=== PATIENT | female | born 1980 | race African-American/Black ===

== ENCOUNTER 2019-10-08 14:44 | Inpatient (IN) | payer OTHER ==
[~2019-10-08] VITALS: Ht 167.6 cm; Wt 85.7 kg
[2019-10-08 15:06] LABS: BASOPHILS 0.1 % (0-2); EOSINOPHILS 0 % (0-7); HEMATOCRIT 33.5 % (36.0-48.0); HEMOGLOBIN 11.4 g/dL (12-16); IMMATURE GRANULOCYTES 0.2 % (0-5); LYMPHOCYTES 4.5 % (15-50); MCH 29.1 pg (26.0-34.0); MCV 85.5 fL (80.0-100.0); MEAN PLATELET VOLUME 10.2 fL (7.4-10.4); MONOCYTES 4.4 % (2-11); NEUTROPHILS 90.8 % (40-80); PLATELET COUNT 202 10x3/uL (130-400); RBC 3.92 10x6/uL (4.00-5.40); RDW 13.3 % (11.5-14.5); WBC 11.4 10x3/uL (4.8-10.8)
[2019-10-08 15:23] LABS: BILIRUBIN NEGATIVE (NEGATIVE); KETONE NEGATIVE (NEGATIVE); NITRITE NEGATIVE (NEGATIVE); UROBILINOGEN NORMAL (NORMAL)
[2019-10-08 15:24] LABS: BACTERIA MODERATE /hpf (NONE SEEN); EPITHELIAL CELLS 0-5 /hpf (0-5); WHITE CELLS - URINE 0-5 /hpf (0-5)
[2019-10-08 15:33] LABS: ALBUMIN 3.3 g/dL (3.4-5.0); ALKALINE PHOSPHATASE 70 U/L (30-120); ALT (SGPT) 15 U/L (10-68); CALC OSMOLALITY 268 mosm/kg (275-300); CALCIUM 8.8 mg/dL (8.5-10.1); CARBON DIOXIDE 24.3 mmol/L (21.0-32.0); CHLORIDE - SERUM 98 mmol/L (98-107); CREATINE KINASE 105 UL (21-215); CREATININE - SERUM 1.2 mg/dL (0.6-1.3); GLUCOSE 179 mg/dL (74-106); PROTEIN - SERUM 8.1 g/dL (6.4-8.2); SODIUM 132 mmol/L (136-145); UREA NITROGEN 12 mg/dL (7-18); eGFR NON AFRICAN AMERICAN 52 mL/min (90-120)
[2019-10-08 15:43] LABS: POTASSIUM - SERUM 2.9 mmol/L (3.5-5.1); TROPONIN-I < 0.017 ng/mL (0.000-0.060)
[2019-10-08 16:45] LABS: C-REACTIVE PROTEIN 36.3 mg/dL (0.0-0.9)
[2019-10-08 19:48] LABS: APTT 40.8 SECONDS (22.8-39.4); INR 1.25 (0.85-1.17); PROTIME 15.6 SECONDS (11.6-15.0)
[2019-10-08 19:49] LABS: D-DIMER-QUANTITATIVE 1.14 ug/mLFEU (0.20-0.54)
[2019-10-08 22:37] VITALS: BP 149/93
[2019-10-09] VITALS (8 sets, daily range): BP systolic 132–158; BP diastolic 58–103; BMI 30.7
--- NOTE | 2019-10-09 07:00 | NUR ---
REPORT REC'D FROM YANI BENITEZ.
[2019-10-09 07:17] LABS: ALBUMIN 2.9 g/dL (3.4-5.0); ANION GAP 12.8 mmol/L (8-16); BILIRUBIN - TOTAL 0.87 mg/dL (0.2-1.3); CALCIUM 8.4 mg/dL (8.5-10.1); CARBON DIOXIDE 22.6 mmol/L (21.0-32.0); CREATININE - SERUM 0.9 mg/dL (0.6-1.3); MAGNESIUM - SERUM 1.9 mg/dL (1.8-2.4); POTASSIUM - SERUM 3.4 mmol/L (3.5-5.1); PROTEIN - SERUM 7.2 g/dL (6.4-8.2)
[2019-10-09 07:37] LABS: BASOPHILS 0.1 % (0-2); EOSINOPHILS 0 % (0-7); HEMATOCRIT 30.4 % (36.0-48.0); HEMOGLOBIN 10.2 g/dL (12-16); IMMATURE GRANULOCYTES 0.4 % (0-5); LYMPHOCYTES 7.5 % (15-50); MCH 28.6 pg (26.0-34.0); MCHC 33.6 g/dL (31.0-37.0); MCV 85.2 fL (80.0-100.0); MONOCYTES 6.9 % (2-11); NEUTROPHILS 85.1 % (40-80); PLATELET COUNT 210 10x3/uL (130-400); RBC 3.57 10x6/uL (4.00-5.40); RDW 13.4 % (11.5-14.5); WBC 10.4 10x3/uL (4.8-10.8)
--- NOTE | 2019-10-09 08:13 | NUR ---
PT DECLINED TAKING ORAL POTASSIUM PER PROTOCOL.
--- NOTE | 2019-10-09 13:41 | NUR ---
REPORT CALLED TO YANI LOWERY.
--- NOTE | 2019-10-09 14:52 | NUR ---
PT ARRIVED VIA WHEELCHAIR AND AMBULATED TO BED WITH STEADY GAIT. WATER AND SHOWER SUPPLIES RECIEVED PER REQUEST. ORIENTED TO ROOM. CALL LIGHT WTIHIN REACH. BED IN LOWEST POSITION. IV WRAPPED. PT IN SHOWER. RR EVEN AND UNLABORED ON RA. DENIES NEEDS OR PAIN AT THIS TIME. WILL CONTINUE TO MONITOR.
[2019-10-10] VITALS: BP 143/92
--- NOTE | 2019-10-10 03:21 | NUR ---
PT TEMP 101.9. MOTRIN GIVEN. WILL CONTINUE TO MONITOR.
[2019-10-10 05:52] LABS: BASOPHILS 0.2 % (0-2); EOSINOPHILS 1.8 % (0-7); HEMATOCRIT 29.1 % (36.0-48.0); HEMOGLOBIN 9.5 g/dL (12-16); IMMATURE GRANULOCYTES 0.6 % (0-5); LYMPHOCYTES 14.7 % (15-50); MCH 27.6 pg (26.0-34.0); MCHC 32.6 g/dL (31.0-37.0); MCV 84.6 fL (80.0-100.0); MEAN PLATELET VOLUME 10.5 fL (7.4-10.4); MONOCYTES 7.7 % (2-11); PLATELET COUNT 189 10x3/uL (130-400); RBC 3.44 10x6/uL (4.00-5.40); RDW 13.8 % (11.5-14.5)
[2019-10-10 05:58] LABS: WBC 6.5 10x3/uL (4.8-10.8)
[2019-10-10 06:15] LABS: ALBUMIN 2.6 g/dL (3.4-5.0); ANION GAP 12.1 mmol/L (8-16); BILIRUBIN - TOTAL 0.58 mg/dL (0.2-1.3); CALCIUM 8.3 mg/dL (8.5-10.1); CREATININE - SERUM 0.9 mg/dL (0.6-1.3); POTASSIUM - SERUM 3.1 mmol/L (3.5-5.1); PROTEIN - SERUM 7.3 g/dL (6.4-8.2)
--- NOTE | 2019-10-10 07:20 | NUR ---
RECIEVE REPORT. ALERT AND ORIENTED X4. UP TO BATHROOM. GAIT STEADY. LINEN AND BATH COMPLETE. DENIES ANY OTHER NEEDS. CONTINUE PLAN OF CARE AND SAFETY PRECAUTIONS.
[2019-10-10 12:40] VITALS: BP 150/95
[2019-10-10 16:27] VITALS: BP 140/80
--- NOTE | 2019-10-10 19:00 | NUR ---
REPORT RECEIVED, WILL CONTINUE POC. PATIENT IS AAOX4, LYING ON RT SIDE. NO S/S OF DISTRESS OBSERVED, RR EVEN AND UNLABORED ON ROOM AIR. PATIENT DENIES NEEDS AT THIS TIME. CL IN REACH, BED LOCKED AND LOWERED. DROPLET PRECAUTIONS MAINTAINED. WILL CTM.
[2019-10-10 20:00] VITALS: BP 138/78
[2019-10-11] VITALS: BP 142/88
[2019-10-11 04:00] VITALS: BP 128/92
[2019-10-11 06:12] LABS: BASOPHILS 0.2 % (0-2); EOSINOPHILS 2.8 % (0-7); HEMATOCRIT 25.6 % (36.0-48.0); HEMOGLOBIN 8.3 g/dL (12-16); IMMATURE GRANULOCYTES 1.7 % (0-5); LYMPHOCYTES 20.1 % (15-50); MCH 27.6 pg (26.0-34.0); MCHC 32.4 g/dL (31.0-37.0); MEAN PLATELET VOLUME 11.5 fL (7.4-10.4); MONOCYTES 12.6 % (2-11); NEUTROPHILS 62.6 % (40-80); PLATELET COUNT 208 10x3/uL (130-400); RBC 3.01 10x6/uL (4.00-5.40); RDW 14.1 % (11.5-14.5); WBC 5.3 10x3/uL (4.8-10.8)
[2019-10-11 06:52] LABS: ALBUMIN 2.5 g/dL (3.4-5.0); ALKALINE PHOSPHATASE 63 U/L (30-120); BILIRUBIN - TOTAL 0.38 mg/dL (0.2-1.3); CALC OSMOLALITY 276 mosm/kg (275-300); CALCIUM 7.9 mg/dL (8.5-10.1); CHLORIDE - SERUM 105 mmol/L (98-107); CREATININE - SERUM 0.8 mg/dL (0.6-1.3); GLUCOSE 92 mg/dL (74-106); MAGNESIUM - SERUM 2.1 mg/dL (1.8-2.4); POTASSIUM - SERUM 3.3 mmol/L (3.5-5.1); PROTEIN - SERUM 6.8 g/dL (6.4-8.2); SODIUM 139 mmol/L (136-145); UREA NITROGEN 9 mg/dL (7-18); eGFR NON AFRICAN AMERICAN 84 mL/min (90-120)
[2019-10-11 06:53] LABS: ALT (SGPT) 23 U/L (10-68)
[2019-10-11 07:29] VITALS: BP 140/99
--- NOTE | 2019-10-11 08:07 | NUR ---
RECIEVE REPORT. ALERT AND ORIENTED X4. SITTING UP IN BED. DENIES ANY NEEDS. CONTINUE PLAN OF CARE AND SAFETY PRECAUTIONS.
[2019-10-11 11:44] VITALS: BP 135/96
[2019-10-11 16:06] VITALS: BP 176/106
--- NOTE | 2019-10-11 17:20 | NUR ---
ALERT AND ORIENTED X4. SITTING UP IN BED. LT AC IV INFILTRATED. DC LT AC IV TIP INTACT. RESITE IV RT AC. DENIES ANY NEEDS. CONTINUE PLAN OF CARE AND SAFETY PRECAUTIONS.
[2019-10-11 20:00] VITALS: BP 162/108
[2019-10-12 04:00] VITALS: BP 156/95
--- NOTE | 2019-10-12 04:28 | NUR ---
I have reviewed this patient and I concur with the Shift Assessment completed by the Licensed Practical Nurse today this shift.
[2019-10-12 06:59] LABS: BASOPHILS 0.4 % (0-2); EOSINOPHILS 4.5 % (0-7); LYMPHOCYTES 24.7 % (15-50); MCH 28.3 pg (26.0-34.0); MCHC 33.3 g/dL (31.0-37.0); MCV 84.8 fL (80.0-100.0); MONOCYTES 11.3 % (2-11); NEUTROPHILS 55.1 % (40-80); PLATELET COUNT 238 10x3/uL (130-400); RBC 2.83 10x6/uL (4.00-5.40); RDW 14.3 % (11.5-14.5); WBC 4.7 10x3/uL (4.8-10.8)
[2019-10-12 07:15] LABS: ALBUMIN 2.4 g/dL (3.4-5.0); ALKALINE PHOSPHATASE 59 U/L (30-120); ALT (SGPT) 18 U/L (10-68); BILIRUBIN - TOTAL 0.37 mg/dL (0.2-1.3); CALC OSMOLALITY 276 mosm/kg (275-300); CARBON DIOXIDE 24.2 mmol/L (21.0-32.0); CHLORIDE - SERUM 105 mmol/L (98-107); CREATININE - SERUM 0.7 mg/dL (0.6-1.3); GLUCOSE 93 mg/dL (74-106); POTASSIUM - SERUM 3.5 mmol/L (3.5-5.1); PROTEIN - SERUM 6.8 g/dL (6.4-8.2); SODIUM 140 mmol/L (136-145); UREA NITROGEN 8 mg/dL (7-18); eGFR NON AFRICAN AMERICAN > 90 mL/min (90-120)
--- NOTE | 2019-10-12 07:15 | NUR ---
RECEIVE SHIFT REPORT. RESTING IN BED WITH EYES CLOSED. NO SIGNS OF DISTRESS. WILL CONTINUE PLAN OF CARE AND SAFETY PRECAUTIONS.
[2019-10-12 07:51] VITALS: BP 152/102
[2019-10-12 10:37] LABS: % SATURATION 28 % (15-55); IRON 70 ug/dl (35-150); TOTAL IRON BIND CAPACITY 246 ug/dl (260-445); UNSAT IRON BIND CAPACITY 176 ug/dl (150-375)
[2019-10-12 10:57] VITALS: BP 160/115
[2019-10-12 13:36] VITALS: Ht 167.6 cm; Wt 85.7 kg
--- NOTE | 2019-10-12 13:37 | MORECARE ---
CASE MANAGEMENT DISCHARGE SUMMARY PATIENT: LUCY CARPENTER UNIT: [id number] ADM DATE: 10/08/19 AGE: 39 : 76 SEX: F ROOM/BED: D.8074 AUTHOR: MARIELA PORTER PHYSICIAN: REFERRING PHYSICIAN: RICKY FRITZ DO DATE OF SERVICE: 10/12/19 Discharge Plan Patient Name: LUCY CARPENTER [facility] : 1980 Planned Disposition: Home Anticipated Discharge Date: Discharge Date: Expected LOS: Initial Reviewer: [email or web address] Initial Review Date: 10/08/2019 Generated: 10/12/19 2:36 pm Comments DCP- Discharge Planning Updated by [email or web address]: Ibis Villa on 10/12/19 12:[address] CM met with patient to discuss initial discharge planning. Patient is in agreement to proceed with the assessment. Patient reports that she lives at home independently with her 5 teenage children. Patient is alert/oriented. PCP: Dr. Costa. Pharmacy: [facility]. Patient states she has been able to obtain all of her prescribed medications. HHS: Declines. DME: None. Patient gives permission to speak with family member. Emergency contact: Mary Bianchi (mother [phone]). Patient is independent with all ADL's, medication management SNELLER HAND. CM discussed the availability of HH, Rehab, SNF, OP Therapy, DME services. Patient denies the need for additional services at this time and feels safe returning to previous environment. Patient denies hospitalization within the past 30 days. Patient denies the use of community resources SNELLER HAND. Transportation at time of discharge: Family. Patient Name: LUCY CARPENTER Page [id number] at 1337 All edits/amendments must be made on the electronic document DICTATION DATE: 10/12/19 1336 SOLDERER PRODUCTION LINE: ESME 10/12/19 1336 RPT#: [id number] DC DATE: STATUS: ADM IN [facility] [address] [id number] END OF REPORT
--- NOTE | 2019-10-12 13:52 | MORECARE ---
CASE MANAGEMENT DISCHARGE SUMMARY PATIENT: LUCY CARPENTER UNIT: [id number] ADM DATE: 10/08/19 AGE: 39 : 76 SEX: F ROOM/BED: D.6596 AUTHOR: MARIELA PORTER PHYSICIAN: REFERRING PHYSICIAN: RICKY FRITZ DO DATE OF SERVICE: 10/12/19 Discharge Plan Patient Name: LUCY CARPENTER Facility: [facility]:[place] : 1980 Planned Disposition: Home Anticipated Discharge Date: Discharge Date: Expected LOS: Initial Reviewer: [email or web address] Initial Review Date: 10/08/2019 Generated: 10/12/19 2:51 pm Comments DCP- Discharge Planning Updated by [email or web address]: Ibis Villa on 10/12/19 12:[address] CM met with patient to discuss initial discharge planning. Patient is in agreement to proceed with the assessment. Patient reports that she lives at home independently with her 5 teenage children. Patient is alert/oriented. PCP: Dr. Costa. Pharmacy: [facility]. Patient states she has been able to obtain all of her prescribed medications. HHS: Declines. DME: None. Patient gives permission to speak with family member. Emergency contact: Mary Bianchi (mother [phone]). Patient is independent with all ADL's, medication management HAT MODEL. CM discussed the availability of HH, Rehab, SNF, OP Therapy, DME services. Patient denies the need for additional services at this time and feels safe returning to previous environment. Patient denies hospitalization within the past 30 days. Patient denies the use of community resources HAT MODEL. Transportation at time of discharge: Family. DCPIA - Discharge Planning Initial Assessment Updated by [email or web address]: Ibis Villa on 10/12/19 1:44 pm * Is the patient Alert and Oriented? Yes * PCP Dr. Costa * Pharmacy [facility] * Preadmission Environment Home with Family * ADLs Independent * Equipment None * Other Equipment NA * List name and contact numbers for known caregivers / representatives who currently or will assist patient after discharge: Mary Bianchi (mother) [phone] * Verbal permission to speak to the caregivers and representatives has been obtained from the patient. Yes * Community resources currently utilized None * Please name any agencies selected above. NA * Additional services required to return to the preadmission environment? No * Can the patient safely return to the preadmission environment? Yes * Has this patient been hospitalized within the prior 30 days at any hospital? No Last DP export: 10/12/19 12:37 pm Patient Name: LUCY CARPENTER Page [id number] at 1352 All edits/amendments must be made on the electronic document DICTATION DATE: 10/12/19 1351 DIRECT MARKETING INTERN: ESME 10/12/19 1351 RPT#: [id number] DC DATE: STATUS: [facility] [address] [place] [address] END OF REPORT
[2019-10-12 15:44] VITALS: BP 162/98
--- NOTE | 2019-10-12 19:21 | NUR ---
AWAKE AND ALERT SPOKE TO PT FROM DOOR PT DENIES NEEDS AT THIS TIME CALL LIGHT IS IN REACH
[2019-10-12 20:00] VITALS: BP 149/85
[2019-10-13 04:00] VITALS: BP 159/99
[2019-10-13 08:09] LABS: ALBUMIN 2.6 g/dL (3.4-5.0); ALKALINE PHOSPHATASE 68 U/L (30-120); BILIRUBIN - TOTAL 0.28 mg/dL (0.2-1.3); CALCIUM 8.5 mg/dL (8.5-10.1); CARBON DIOXIDE 23.2 mmol/L (21.0-32.0); CHLORIDE - SERUM 104 mmol/L (98-107); CREATININE - SERUM 0.7 mg/dL (0.6-1.3); GLUCOSE 91 mg/dL (74-106); MAGNESIUM - SERUM 1.9 mg/dL (1.8-2.4); POTASSIUM - SERUM 3.9 mmol/L (3.5-5.1); PROTEIN - SERUM 7.1 g/dL (6.4-8.2); SODIUM 137 mmol/L (136-145); eGFR NON AFRICAN AMERICAN > 90 mL/min (90-120)
[2019-10-13 08:11] LABS: ALT (SGPT) 25 U/L (10-68); CALC OSMOLALITY 273 mosm/kg (275-300); UREA NITROGEN 12 mg/dL (7-18)
[2019-10-13 08:33] LABS: BASOPHILS 0.8 % (0-2); EOSINOPHILS 4.8 % (0-7); HEMATOCRIT 26.3 % (36.0-48.0); HEMOGLOBIN 8.6 g/dL (12-16); IMMATURE GRANULOCYTES 8.2 % (0-5); MCH 27.9 pg (26.0-34.0); MCHC 32.7 g/dL (31.0-37.0); MCV 85.4 fL (80.0-100.0); MEAN PLATELET VOLUME 10.8 fL (7.4-10.4); MONOCYTES 9.5 % (2-11); NEUTROPHILS 57.7 % (40-80); RBC 3.08 10x6/uL (4.00-5.40); RDW 14.4 % (11.5-14.5); WBC 5.3 10x3/uL (4.8-10.8)
[2019-10-13 08:34] VITALS: BP 167/111
[2019-10-13 08:39] LABS: PLATELET COUNT 305 10x3/uL (130-400)
[2019-10-13 12:12] VITALS: BP 160/102
[2019-10-13 15:46] VITALS: BP 159/91
--- NOTE | 2019-10-13 19:58 | NUR ---
RECIEVED UP IN BED WITH EYES OPEN ANDTV ON. ALERT AND ORIENTED X4. UP IN SHOWER. ASKED IF IV WAS COVERED AND REPLIED " I HAD TO DO IT MYSELF".PT HAD DISCONNECTED IV. DENIES ANY NEEDS.
[2019-10-13 20:59] VITALS: BP 159/96
[2019-10-14 01:22] VITALS: BP 158/102
--- NOTE | 2019-10-14 03:29 | NUR ---
IV INFILTRATED EARLIER THIS SHIFT. REFUSES TO LET THIS NURSE RESTART . CALLED NURSES DESK AND TOLD THEM SHE DID NOT WANT THIS NURSE TO RESTART HER IV BECAUSE SHE WAS TO BUSY. ATTEMPTING TO GET ANOTHER NURSE TO RESTART IV. WILL CALL ER AND SEE IF SOMEONE HAS TIME.
[2019-10-14 09:11] VITALS: BP 162/108
[2019-10-14] MEDS ORDERED: CLEOCIN HCL300 MG PO (11:39)
[2019-10-14] MEDS ORDERED: LEVAQUIN750 MG PO (11:40)
[2019-10-14] MEDS ORDERED: COZAAR50 MG PO (11:41)
[2019-10-14] MEDS ORDERED: MUCINEX600 MG PO (11:42)
[2019-10-14] MEDS ORDERED: FLORAJEN3 CAPS460 MG PO (11:42)
[2019-10-14] MEDS ORDERED: HCTZ25 MG PO (13:00)
--- NOTE | 2019-10-14 14:01 | MORECARE ---
CASE MANAGEMENT DISCHARGE SUMMARY PATIENT: LUCY CARPENTER UNIT: [id number] ADM DATE: 10/08/19 AGE: 39 : 76 SEX: F ROOM/BED: D.5178 AUTHOR: MARIELA PORTER PHYSICIAN: REFERRING PHYSICIAN: RICKY FRITZ DO DATE OF SERVICE: 10/14/19 Discharge Plan Patient Name: LUCY CARPENTER Facility: [facility]:[place] : 1980 Planned Disposition: Home Anticipated Discharge Date: Discharge Date: Expected LOS: Initial Reviewer: [email or web address] Initial Review Date: 10/08/2019 Generated: 10/14/19 3:00 pm Comments DCP- Discharge Planning Updated by [email or web address]: Rashida Kumari on 10/14/19 1:[address] Patient Name: LUCY CARPENTER Encounter No: [id number] : 1980 Primary Insurance: [facility] [employer] Anticipated DC Date: Planned Disposition: Home External Planned Provider: : DCP follow-up note: CM spoke with patient about discharge plan. Patient states she lives alone with her 5 children and is independent. At discharge she states that her sister will pick her up. States she was independent at home, and has been independent while in the hospital. CM discussed availability of home health, rehab services, and medical equipment. Patient denied known discharge needs at this time. Patient and family in agreement with discharge plan. No changes to plan. Case management will follow and assist as needed. Rashida Kumari MSN,RN,CM DCP- Discharge Planning Updated by [email or web address]: Ibis Villa on 10/12/19 12:[address] CM met with patient to discuss initial discharge planning. Patient is in agreement to proceed with the assessment. Patient reports that she lives at home independently with her 5 teenage children. Patient is alert/oriented. PCP: Dr. Costa. Pharmacy: [facility]. Patient states she has been able to obtain all of her prescribed medications. HHS: Declines. DME: None. Patient gives permission to speak with family member. Emergency contact: Mary Bianchi (mother [phone]). 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 CM discussed the availability of HH, Rehab, SNF, OP Therapy, DME services. Patient denies the need for additional services at this time and feels safe returning to previous environment. Patient denies hospitalization within the past 30 days. 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 Transportation at time of discharge: Family. DCPIA - Discharge Planning Initial Assessment Updated by [email or web address]: Ibis Villa on 10/12/19 1:44 pm * Is the patient Alert and Oriented? Yes * PCP Dr. Costa * Pharmacy [facility] * Preadmission Environment Home with Family * ADLs Independent * Equipment None * Other Equipment NA * List name and contact numbers for known caregivers / representatives who currently or will assist patient after discharge: Mary Bianchi (mother) [phone] * Verbal permission to speak to the caregivers and representatives has been obtained from the patient. Yes * Community resources currently utilized None * Please name any agencies selected above. NA * Additional services required to return to the preadmission environment? No * Can the patient safely return to the preadmission environment? Yes * Has this patient been hospitalized within the prior 30 days at any hospital? No Last DP export: 10/12/19 12:52 pm Patient Name: LUCY CARPENTER Page [id number] at 1401 All edits/amendments must be made on the electronic document DICTATION DATE: 10/14/19 1400 GUN EXAMINER: ESME 10/14/19 1400 RPT#: [id number] DC DATE: STATUS: ADM IN [facility] [address] [place] [address] END OF REPORT
--- NOTE | 2019-10-14 15:45 | NUR ---
D/C INSTRUCTIONS REVIEWED . VERBALIZED AGREEMENT. IV D/C WITH CATHETER TIP INTACT. LEFT WITH ALL BELONGINGS VIA WHEELCHAIR
--- NOTE | 2019-10-17 16:02 | MORECARE ---
CASE MANAGEMENT DISCHARGE SUMMARY PATIENT: LUCY CARPENTER UNIT: [id number] ADM DATE: 10/08/19 AGE: 39 : 76 SEX: F ROOM/BED: D.1328 AUTHOR: MARIELA PORTER PHYSICIAN: REFERRING PHYSICIAN: RICKY FRITZ DO DATE OF SERVICE: 10/17/19 Discharge Plan Patient Name: LUCY CARPENTER Facility: [facility]:[place] : 1980 Planned Disposition: Home Anticipated Discharge Date: Discharge Date: 10/14/2019 Expected LOS: Initial Reviewer: [email or web address] Initial Review Date: 10/08/2019 Generated: 10/17/19 5:01 pm Comments DCP- Discharge Planning Updated by [email or web address]: Rashida Kumari on 10/14/19 1:[address] Patient Name: LUCY CARPENTER Encounter No: [id number] : 1980 Primary Insurance: [employer] Anticipated DC Date: Planned Disposition: Home External Planned Provider: : DCP follow-up note: CM spoke with patient about discharge plan. Patient states she lives alone with her 5 children and is independent. At discharge she states that her sister will pick her up. States she was independent at home, and has been independent while in the hospital. CM discussed availability of home health, rehab services, and medical equipment. Patient denied known discharge needs at this time. Patient and family in agreement with discharge plan. No changes to plan. Case management will follow and assist as needed. Rashida Kumari MSN,RN,CM DCP- Discharge Planning Updated by [email or web address]: Ibis Villa on 10/12/19 12:[address] CM met with patient to discuss initial discharge planning. Patient is in agreement to proceed with the assessment. Patient reports that she lives at home independently with her 5 teenage children. Patient is alert/oriented. PCP: Dr. Costa. Pharmacy: [facility]. Patient states she has been able to obtain all of her prescribed medications. HHS: Declines. DME: None. Patient gives permission to speak with family member. Emergency contact: Mary Bianchi (mother [phone]). 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 CM discussed the availability of HH, Rehab, SNF, OP Therapy, DME services. Patient denies the need for additional services at this time and feels safe returning to previous environment. Patient denies hospitalization within the past 30 days. 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 Transportation at time of discharge: Family. DCPIA - Discharge Planning Initial Assessment Updated by [email or web address]: Ibis Villa on 10/12/19 1:44 pm * Is the patient Alert and Oriented? Yes * PCP Dr. Costa * Pharmacy [facility] * Preadmission Environment Home with Family * ADLs Independent * Equipment None * Other Equipment NA * List name and contact numbers for known caregivers / representatives who currently or will assist patient after discharge: Mary Biacnhi (mother) [phone] * Verbal permission to speak to the caregivers and representatives has been obtained from the patient. Yes * Community resources currently utilized None * Please name any agencies selected above. NA * Additional services required to return to the preadmission environment? No * Can the patient safely return to the preadmission environment? Yes * Has this patient been hospitalized within the prior 30 days at any hospital? No Last DP export: 10/14/19 1:01 pm Patient Name: LUCY CARPENTER Page [id number] at 1602 All edits/amendments must be made on the electronic document DICTATION DATE: 10/17/191601 EXTENDED DAY TEACHER: ESME 10/17/19 160 RPT#: [id number] DC DATE:10/14/19 STATUS: DIS IN [facility] [address] [place] [address] END OF REPORT
== END 2019-10-14 16:20 | disposition home or self-care (01) | DRG 871 ==
LOC: D.ER 14:44 → D.M2 21:18 → D.EDHOLD 21:18 → D.M2 10-09 14:20
PROVIDERS: Family Medicine; ADMIT Family Medicine; ATTEND Family Medicine
DX: A41.9 Sepsis, unspecified organism (principal); J10.00 Influenza due to other identified influenza virus with unspecified type of pneumonia; E87.1 Hypo-osmolality and hyponatremia; D64.9 Anemia, unspecified; E87.6 Hypokalemia; J44.9 Chronic obstructive pulmonary disease, unspecified